=== PATIENT | male | born 1985 | race Caucasian/White ===

== ENCOUNTER 2017-01-06 08:17 | Emergency (ER) | payer SELFPAY ==
[~2017-01-06] VITALS: Ht 185.4 cm; Wt 93.7 kg
[~2017-01-06 08:17] MED LIST: CLEOCIN300 MG PO; FLEXERIL10 MG PO; KEFLEX500 MG PO; METHADONE10 MG; NAPROXEN500 MG PO; NOHOMEMEDS; NORCO 5/3251 TABLET PO; VICODIN 5-3001 EACH PO
[2017-01-06] MEDS ORDERED: PERCOCET 5/31 TABLET PO (09:13)
[2017-01-06 09:42] VITALS: BP 147/89
== END 2017-01-06 09:42 | disposition home or self-care (01) ==
LOC: EME 08:17
DX: S22.42XA Multiple fractures of ribs, left side, initial encounter for closed fracture (principal); X58.XXXA Exposure to other specified factors, initial encounter; F17.200 Nicotine dependence, unspecified, uncomplicated
CPT/HCPCS: 71100; 99281; 99284